=== PATIENT | female | born 1935 | race Hispanic/Latino ===

== ENCOUNTER → 2019-09-05 | Day surgery (SDC) | payer MEDICARE ==
[~2019-09-05] MED LIST: FENTANYL CITRATE/PF 100MCG/2 ML INJ ONE; MIDAZOLAM HCL 2 MG/2 ML VIAL ONE; OMEPRAZOLE40 MG PO; OR PHACO EYE KIT ONE; PREOP PHACO EYE KIT ONE; ZETIA10 MG PO
[2019-09-05 13:56] VITALS: BP 146/66
== END | disposition home or self-care (01) ==
LOC: OR 10:30
PROVIDERS: ATTEND Ophthalmology
DX: H25.11 Age-related nuclear cataract, right eye (principal); M81.0 Age-related osteoporosis without current pathological fracture; K21.9 Gastro-esophageal reflux disease without esophagitis; G43.909 Migraine, unspecified, not intractable, without status migrainosus; E78.5 Hyperlipidemia, unspecified
CPT/HCPCS: 66984; J2250; J3010; V2632